=== PATIENT | male | born 1995 | race Caucasian/White ===

== ENCOUNTER 2023-08-25 14:40 | Emergency (ER) | payer SELFPAY ==
[~2023-08-25] VITALS: Ht 162.6 cm; Wt 65.0 kg
[2023-08-25 15:29] VITALS: O2SAT 100
[2023-08-25] MEDS: METHOCARBAMOL 500MG TABLET PO ONE (16:50)
[2023-08-25] MEDS: KETOROLAC 30MG/ML VIAL IM ONE (16:50)
[2023-08-25] MEDS ORDERED: IBUP-2029 MT (16:55)
[2023-08-25] MEDS ORDERED: METH-653 MT (16:55)
[2023-08-25 17:09] VITALS: BP 118/78; PULSE 66; RESP 18; TEMP 97.2
== END 2023-08-25 17:10 | disposition home or self-care (01) ==
LOC: ER 15:00
DX: S33.5XXA Sprain of ligaments of lumbar spine, initial encounter (principal); X58.XXXA Exposure to other specified factors, initial encounter; Y93.89 Activity, other specified; Y92.89 Other specified places as the place of occurrence of the external cause; Y99.8 Other external cause status
CPT/HCPCS: 99283; 96372; J1885